=== PATIENT | female | born 1970 | race Caucasian/White ===

== ENCOUNTER 2019-11-26 15:39 | Outpatient (REF) | payer OTHER, SELFPAY ==
[2019-11-27 09:34] LABS: BV Int Neg Control Negative (Negative); BV Int Pos Control Positive (Positive)
== END 2019-11-26 15:40 | disposition home or self-care (01) ==
LOC: HO.LNP 15:39
PROVIDERS: PCP Internal Medicine; Referring Provider Internal Medicine; Visit Provider Obstetrics & Gynecology
DX: Z11.3 Encounter for screening for infections with a predominantly sexual mode of transmission (principal); N76.0 Acute vaginitis
CPT/HCPCS: 87480; 87510; 87660

== ENCOUNTER 2019-12-17 14:41 | Outpatient (REF) | payer OTHER, SELFPAY ==
[2019-12-25 18:17] LABS: HPV mRNA E6/E7 Not Detected (Not Detected)
== END 2019-12-17 14:42 | disposition home or self-care (01) ==
LOC: HO.LAB 14:41
PROVIDERS: Visit Provider Obstetrics & Gynecology
DX: Z01.419 Encounter for gynecological examination (general) (routine) without abnormal findings (principal)
CPT/HCPCS: 87624; 88142

== ENCOUNTER → 2020-01-31 11:02 | Outpatient (BNVA) | payer OTHER, SELFPAY | PROVIDERS: Visit Provider Nurse Practitioner Family | DX: Z76.89 Persons encountering health services in other specified circumstances (principal) ==

== ENCOUNTER 2020-03-16 13:40 | Outpatient (REF) | payer OTHER, SELFPAY ==
--- NOTE | 2020-03-16 13:43 | MM_ITS ---
EXAMINATION: MM SCREENING DIGITAL BREAST TOMOSYNTHESIS, BILATERAL CLINICAL INFORMATION: Screening. Asymptomatic. The lifetime risk of breast cancer based on the Tyrer-Cuzick Model is 9%. COMPARISON: Mammography: 12/01/2016, 08/21/2013 TECHNIQUE: Digital breast tomosynthesis is performed in both the craniocaudal and mediolateral oblique views along with computer-aided detection (CAD). Synthesized 2D images are generated from the tomosynthesis. FINDINGS: There are scattered areas of fibroglandular density (ACR BI-RADS breast composition Category b). There are no significant masses, abnormal calcifications, or other abnormalities. The axilla and skin contours are unremarkable. No significant changes. MM/MM tomosynthesis screening BI IMPRESSION: No mammographic evidence of malignancy. ASSESSMENT: BI-RADS 1: Negative RECOMMENDATION: Routine annual mammography screening. This patient's information was entered into a reminder system with a target due date for their next mammogram.
== END 2020-03-16 13:41 | disposition home or self-care (01) ==
LOC: HO.MAMMO 13:40
PROVIDERS: Visit Provider Obstetrics & Gynecology
DX: Z12.31 Encounter for screening mammogram for malignant neoplasm of breast (principal)
CPT/HCPCS: 77063; 77067

== ENCOUNTER 2020-06-11 06:24 | Day surgery (SDC) | payer OTHER, SELFPAY ==
[2020-06-01 15:32] LABS: Hematocrit 39.2 % (37-47); Hemoglobin 12.3 g/dl (12.0-16.0); Mean Corpuscular HGB Conc 31.4 g/dl (31.0-35.0); Mean Corpuscular Hemoglobin 26.6 pg (27.0-33.0); Mean Corpuscular Volume 84.8 fL (80-98); Mean Platelet Volume 10.5 fL (9.4-12.3); Platelet Count 262 X10*3/uL (160-400); Red Blood Count 4.62 X10*6/uL (4.20-5.50); Red Cell Distribution Width 14.3 % (11.0-16.0); White Blood Count 7.7 X10*3/uL (4.8-10.8)
[2020-06-01 15:51] LABS: Alanine Aminotransferase 20 U/L (0-31); Albumin Level 4.5 g/dL (3.5-5.0); Alkaline Phosphatase 43 U/L (39-117); Anion Gap 16 (12-20); Aspartate Amino Transferase 18 U/L (5-31); Bilirubin Total 0.6 mg/dL (0.0-1.0); Blood Urea Nitrogen 17 mg/dL (9-16); Carbon Dioxide 26 mmol/L (22-29); Chloride 101 mmol/L (96-108); Estimated Glomerular Filt Rate > 60; Glucose Random 86 mg/dL (60-115); Potassium 5.1 mmol/L (3.3-5.1); Sodium 138 mmol/L (135-145); Total Protein 7.1 g/dL (6.5-8.0)
[2020-06-11 06:33] VITALS: BMI 22.3
[2020-06-11 06:44] LABS: UPreg QC Valid YES; Urine Pregnancy NEGATIVE (NEGATIVE)
[2020-06-11 06:45] VITALS: BP 86/50; PULSE 62; RESP 20; TEMP 36.9; O2SAT 100; BMI 22.3
[2020-06-11] MEDS: Lactated Ringers 1,000 ML 20 ML IVCONT (07:08)
--- NOTE | 2020-06-11 07:08 | HO.ANESPROP2 ---
[facility] Past Medical History Medical History Hx of headache Family History Family History Mother Colon cancer Father Alive and well Surgical History Surgical History History of surgical removal of pilonidal cyst Hx of cervical polypectomy Social History Social History Alcohol intake: never Smoking Status: Never smoker Second Hand Smoke Exposure: No Use of substances other than those prescribed or required for medical reasons: No Advance Directives: No Advance Directives Information Provided: Yes Sexual orientation: Straight/Heterosexual Gender identity: female Meds Allergies Allergy/AdvReac Type Severity Reaction Status Date / Time No Known Allergies Allergy Unverified 06/04/20 11:14 [No Known Allergies*] Active Medications: Current Medications Generic Name Dose Route Start Last Admin Trade Name Freq PRN Reason Stop Dose Admin Lactated Ringer's 1,000 mls @ 20 mls/hr 06/10/20 14:15 Lr IVCONT .Q24H [facility] Home Medications Medication Instructions Recorded Confirmed Last Taken Type valerian root 100 mg capsule 100 mg PO TID-QID PRN 12/17/19 06/04/20 Unknown History Exam Exam Date and Time: June 11, 2020 0708 Height,Weight and Vital Signs: Height 5 ft 4 in Weight 58.967 kg Last Vital Signs Temp 98.4 F 06/11/20 06:45 Pulse 62 06/11/20 06:45 Resp 20 06/11/20 06:45 BP 86/50 L 06/11/20 06:45 Pulse Ox 100 06/11/20 06:45 Pertinent Lab Results Pertinent Lab Results: Laboratory Tests 06/01/20 06/01/20 06/11/20 15:07 15:07 06:35 WBC 7.7 RBC 4.62 Hgb 12.3 Hct 39.2 MCV 84.8 MCH 26.6 L MCHC 31.4 RDW 14.3 Plt Count 262 MPV 10.5 Absolute Nucleated RBC 0.000 Nucleated RBC % (auto) 0.0 Sodium 138 Potassium 5.1 Chloride 101 Carbon Dioxide 26 Anion Gap 16 BUN 17 H Creatinine 0.84 Estim Creat Clear Calc TNP Estimated GFR > 60 Random Glucose 86 Calcium 10.0 Total Bilirubin 0.6 AST 18 ALT 20 Alkaline Phosphatase 43 Total Protein 7.1 Albumin 4.5 Urine Test NEGATIVE Airway Mallampati Class: II TM Dist: >3cm Neck ROM: Full
--- NOTE | 2020-06-11 07:12 | MHC.SHP ---
Pre-Procedural Eval Section B Chief Complaint: screening Details of Present Illness: 49 yo female w/ + Family hx in her mother for colon cancer Relevant Family History (Specify if Yes): Yes Relevant Social History: None Present Medications: None Medical History: No relevant PMH History of Previous Operations: No relevant previous surgery Allergies: Allergies Allergy/AdvReac Type Severity Reaction Status Date / Time No Known Allergies Allergy Unverified 06/04/20 11:14 [No Known Allergies*] Plan Diagnosis/Plan: Unchanged I have reviewed the history and physical and performed a pertinent physical examination on my patient. No changes have occurred unless specified.
[2020-06-11 08:15] VITALS: BP 83/40; PULSE 70; RESP 16; TEMP 37.1; O2SAT 99
--- NOTE | 2020-06-11 08:17 | PM.OP ---
Brief Operative Note Date of Service: 06/11/20 Pre-op diagnosis: COLON CANCER SCREENING--MOTHER COLON CANCER AGE 79 Post-op diagnosis: other (DIVERTICULOSIS, 1+ INTERNAL HEMORRHOIDS) Procedure: COLONOSCOPY Implants: NONE Surgeon: Sue Kang MD Anesthesia: MAC (Jennifer STUBBS CRNA) Estimated blood loss (mL): 0 Pathology: none sent Condition: stable Disposition: PACU
[2020-06-11 08:30] VITALS: BP 86/45; PULSE 55; RESP 17; TEMP 37.1; O2SAT 99
--- NOTE | 2020-06-11 08:33 | W.PM.OPN ---
Operative Note Operative Note Date of Service: 06/11/20 Narrative: Pre-op diagnosis: COLON CANCER SCREENING--MOTHER COLON CANCER AGE 79 Post-op diagnosis: DIVERTICULOSIS, 1+ INTERNAL HEMORRHOIDS Procedure: COLONOSCOPY Implants: NONE Surgeon: Sue Kang MD Anesthesia: MAC: Jennifer STUBBS CRNA FINDINGS: ALEENA: Normal sphincter tone Adult slim colonoscope inserted without difficulty. Scope advanced through sigmoid, descending, transverse and ascending colon into the cecum. Appendiceal orifice seen. Ileocecal valve was seen. PREP: Good to excellent. No mucosal lesions seen. Minor Diveticulosis on the left side. Slow withdrawal of scope, no new lesions seen. ARV-clear. 1+Internal hemorroids were noted. Estimated blood loss (mL): 0 Pathology: none sent Condition: stable Disposition: PACU PLAN: REPEAT COLON CANCER SCREENING IN 5 YEARS DUE TO MOTHER'S HX OF COLON CANCER.
== END 2020-06-11 08:55 | disposition home or self-care (01) ==
PROVIDERS: Anesthesiology; Nurse Practitioner Family; Visit Provider Internal Medicine Gastroenterology
PROC: 0DJD8ZZ Inspection of Lower Intestinal Tract, Via Natural or Artificial Opening Endoscopic (ICD-10-PCS; CPT 45378; principal; 2020-06-11 07:30)
DX: Z12.11 Encounter for screening for malignant neoplasm of colon (principal); Z80.0 Family history of malignant neoplasm of digestive organs; K57.30 Diverticulosis of large intestine without perforation or abscess without bleeding; K64.8 Other hemorrhoids
CPT/HCPCS: 45378; 36415; 80053; 81025; 85027

== ENCOUNTER → 2020-06-25 13:49 | Outpatient (BNVA) | payer OTHER, SELFPAY | PROVIDERS: PCP Internal Medicine; Visit Provider Nurse Practitioner Family ==

== ENCOUNTER 2020-12-21 14:41 | Outpatient (REF) | payer OTHER, SELFPAY ==
[2020-12-23 20:37] LABS: HPV mRNA E6/E7 rflx Not Detected (Not Detected)
== END 2020-12-21 14:42 | disposition home or self-care (01) ==
LOC: HO.LAB 14:41
PROVIDERS: Visit Provider Advanced Practice Midwife
DX: Z01.419 Encounter for gynecological examination (general) (routine) without abnormal findings (principal); Z11.51 Encounter for screening for human papillomavirus (HPV); Z87.42 Personal history of other diseases of the female genital tract
CPT/HCPCS: 87624; 88142

== ENCOUNTER 2022-09-22 10:23 | Outpatient (AMB) | payer OTHER, SELFPAY ==
--- NOTE | 2022-09-22 10:41 | A.OFFVIS_ITS ---
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 She is sexually active with her of 20 +years and has no concerns at all about STIs or abnormal discharge. 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 She is due for mammogram and would like me to place another order. She has seen her primary care provider somewhat recently and is going to be getting what ever blood work is required when she can. She eats really healthy fruits vegetables and protein and shops the outside of the supermarket and avoids unhealthy foods she teaches [employer] as well. [facility] Medical History Hx of headache Surgical History History of surgical removal of pilonidal cyst Hx of cervical polypectomy Family History Mother Colon cancer Father Alive and well Social History Alcohol intake: current Alcohol intake frequency: a few times a week Alcohol type: wine Second Hand Smoke Exposure: No Sexual orientation: Straight/Heterosexual Gender identity: Female Female Reproductive History Menstrual Age of Menarche: 11 Date of last menstrual period: 06/21/21 control method: none Total pregnancies: 2 Full term: 2 Date of last pap smear: 12/22/20 History of abnormal pap smear: Yes History of STI: No Date of Mammogram: 03/16/20 History of abnormal mammogram: No Physical Exam Vital Signs: Last Vital Signs BP 118/64 09/22/22 10:42 BMI result Body Mass Index 24.2 Const General: healthy appearing, comfortable, no acute distress, well developed and alert Nutritional Appearance: average body habitus Orientation/consciousness: patient oriented x3 Limitations: no limitations HEENT Head: Yes normocephalic Neck Neck: Yes normal visual inspection Chest Chest palpation & inspection: normal inspection of the chest Breast/axilla inspection: normal inspection of the breasts and normal inspection of the axillae Breast/axilla palpation: normal palpation of the breasts and normal palpation of the axillae Resp Effort & Inspection: normal respiratory effort GI Inspection: Yes normal to inspection, No Abdominal wall edema and No distended Palpation (GI): Soft to palpation and nontender General: Yes bladder normal to palpation External Female Exam: normal external appearance and normal appearance of the urethra Speculum Exam - Vagina: normal appearance of the vagina, normal palpation and normal vaginal discharge Speculum Exam - Cervix: normal appearance of the cervix, normal palpation and nontender Bimanual exam- vagina & uterus: normal bimanual exam, normal palpation, uterine size normal, bladder normal to palpation, consistency normal, normal palpation, uterine mobility normal, uterine shape normal, No Cervical tenderness present, non-tender and no cervical motion tenderness Bimanual Exam- Adnexa, other: normal adnexae, no masses, normal and No adnexal tenderness Neuro General: patient oriented x3 Results Reviewed Results Reviewed: Name:?Laisha Simon Age/Sex: 49/F Attending: Sue Avila CNM : 1970 Submitted by: MargaritaSue AVSuzette Copies to: MR #: [id number] ? Status: DEP REF Collected: 12/21/20 Location: .LAB Received: 12/22/20 Interpretation General Category:?? Negative for intraepithelial lesion/malignancy. Adequacy:? Endocervical component present. Interpretation:? ?? Inflammation and blood with associated cellular changes. HPV mRNA E6/E7:? Not Detected This assay detects E6/E7 viral messenger RNA (mRNA) from 14 high-risk HPV types (16, 18, 31, 33, 35, 39, 45, 51, 52, 56, 58, 59, 66, 68) HPV testing performed by [facility], [place], [place].? See reference laboratory portion of the EMR for entire report. Clinical Information LMP: 12/18/20 Previous PAP test: 2019, Neg Other history: 2013, Abnormal Material Received ThinPrep-Cervical Name:?Laisha Simon Specimen #:?[id number] Age/Sex: 48/F Attending: Christa Loyd MD : 1970 Submitted by: Christa Loyd MD Collected: 12/17/19 MR #: [id number] Received: 12/18/19 Status: [facility] RE[facility] Interpretation Satisfactory for evaluation. Negative for intraepithelial lesion or malignancy. HPV mRNA E6/E7: Not Detected This assay detects E6/E7 viral messenger RNA (mRNA) from 14 high-risk HPV types (16, 18, 31, 33, 35, 39, 45, 51, 52, 56, 58, 59, 66, 68) HPV testing performed by [facility], [place], [place].? See reference laboratory portion of the EMR for entire report. Clinical Information LMP: Unknown date Previous PAP test: 11/2018, wnl Other history: Abnormal appearance of the cervix on exam Material Received ThinPrep cervical Pap with ASCUS in 2017. Assessment & Plan Assessment & Plan (1) Hx of abnormal cervical Pap smear: Comment: ascus 2017 pap 12/21/20= neg, neg hpv Code(s): Z87.42 - Personal history of other diseases of the female genital tract (2) Well woman exam with routine gynecological exam: Code(s): Z01.419 - Encounter for gynecological examination (general) (routine) without abnormal findings (3) Breast cancer screening: Code(s): Z12.39 - Encounter for other screening for malignant neoplasm of breast Plan -----Discussed in this visit the following: healthy balanced diet, regular and consistent exercise, getting recommended health screens, doing the best she can for her particular health concerns, kegel exercises, pap smear screening and followup recommendations, mammography screening and SBE, normal changes in cycles in her life stage--- . Reviewed her excellent self-care mammogram will be ordered we will see her next year Pap was done because of her history of ASCUS in 2017.. Orders: Orders Pap Smear Today Z01.419 - Encounter for gynecological examination (general) (routine) without abnormal findings MM tomosynthesis screening BI Today Z01.419 - Encounter for gynecological examination (general) (routine) without abnormal findings, Z12.31 - Encounter for screening mammogram for malignant neoplasm of breast, Z12.39 - Encounter for other screening for malignant neoplasm of breast, Z87.42 - Personal history of other diseases of the female genital tract Coding Level of Care Code Est Pt Prev Care 40-64y(86090) Diagnoses Hx of abnormal cervical Pap smear Z87.42 Well woman exam with routine gynecological exam Z01.419 Breast cancer screening Z12.39
[2022-09-22 10:42] VITALS: BP 118/64; BMI 24.2
== END 2022-09-22 12:53 | disposition home or self-care (01) ==
LOC: HO.HWS 10:23
PROVIDERS: Visit Provider Advanced Practice Midwife
DX: Z01.419 Encounter for gynecological examination (general) (routine) without abnormal findings (principal); Z87.42 Personal history of other diseases of the female genital tract; Z12.39 Encounter for other screening for malignant neoplasm of breast
CPT/HCPCS: 99396

== ENCOUNTER 2022-09-22 10:23 | Outpatient (REF) | payer OTHER, SELFPAY ==
[2022-09-30 02:14] LABS: HPV mRNA E6/E7 rflx Not Detected (Not Detected)
== END 2022-09-22 10:24 | disposition home or self-care (01) ==
LOC: HO.LNP 10:23
PROVIDERS: Visit Provider Advanced Practice Midwife
DX: Z01.419 Encounter for gynecological examination (general) (routine) without abnormal findings (principal); Z11.51 Encounter for screening for human papillomavirus (HPV)
CPT/HCPCS: 87624; 88142

== ENCOUNTER 2022-10-18 14:02 | Outpatient (REF) | payer OTHER, SELFPAY ==
--- NOTE | ~2022-10-18 | MM_ITS ---
EXAMINATION: MM SCREENING DIGITAL BREAST TOMOSYNTHESIS, BILATERAL CLINICAL INFORMATION: Screening. Asymptomatic. COMPARISON: Mammography: This study is compared with prior exams dating back to 2013. TECHNIQUE: Digital breast tomosynthesis is performed in both the craniocaudal and mediolateral oblique views along with computer-aided detection (CAD). Synthesized 2D images are generated from the tomosynthesis. FINDINGS: There are scattered areas of fibroglandular density (ACR BI-RADS breast composition Category b). There are no significant masses, abnormal calcifications, or other abnormalities. MM/MM tomosynthesis screening BI IMPRESSION: No mammographic evidence of malignancy. ASSESSMENT: BI-RADS BI-RADS 1 - Negative RECOMMENDATION: Routine annual mammography screening. 1 year F/U This examination should not preclude the clinical evaluation of a suspicious palpable abnormality. This patient's information was entered into a reminder system with a target due date for their next mammogram.
== END 2022-10-18 14:03 | disposition home or self-care (01) ==
LOC: HO.MAMMO 14:02
PROVIDERS: PCP Internal Medicine; Visit Provider Advanced Practice Midwife
DX: Z12.31 Encounter for screening mammogram for malignant neoplasm of breast (principal)
CPT/HCPCS: 77063; 77067

== ENCOUNTER → 2022-10-18 14:45 | Outpatient (BNV) | payer OTHER, SELFPAY | PROVIDERS: PCP Internal Medicine; Visit Provider Radiology Diagnostic Radiology | DX: Z12.31 Encounter for screening mammogram for malignant neoplasm of breast (principal) | CPT/HCPCS: 77063; 77067 ==

== ENCOUNTER 2024-10-01 08:18 | Outpatient (REF) | payer OTHER, SELFPAY ==
--- OUTSIDE RECORDS SUMMARY | 2024-10-02 08:22 | XMS_ITS | Patient Health Record ---
Author Organization [facility] Address [address] [place] [address] Care Team Providers Care Manager Leadership Development Name Role Phone Chiqui Troncoso MD Primary Care Provider Unavail able Black, Britany Unavailable [phone] Reason For Referral No Information Medications Medication SIG (Take, Route, Frequency, Duration) Notes Start Date End Date Status Feldene 20 MG 1 capsule with food Orally Once a day; Duration: 30 day(s) 02/06/2018 Active Social History Tobacco Use: Social History Observation Description Date Details (start date - stop date) Never Smoker NA - NA Tobacco Use/Smoking Question Answer Notes Are you a: nonsmoker Additional Findings: Tobacco Non-User Aggressive non-smoker,Current non-smoker Alcohol Screen Question Answer Notes Did you have a drink contain ing alcohol in the past year? Yes How often did you have a dri nk containing alcohol in the past year? 2 to 3 times a week (3 points) How many drinks did you have on a typical day when you were drinking in the past year? 1 or 2 drinks (0 point) How often did you have 6 or more drinks on one occasion in the past year? Never (0 point) Points 3 Interpretation Positive Tobacco use other than smoking: Question Answer Notes Are you an other tobacco user? No Problems No Known Problems Plan Of Treatment No Information Insurance Providers Payer Name Payer Address Payer Phone Subscriber Number Group Number Insured Name Patient Relationship to Insured Coverage Start Date Coverage End Date [facility] [address] [place] [address] [id number] Marques Simon Spouse - patient is the spouse of the insured Medical (General) History Medical History History ICD Code Chicken pox Surgical History Surgery Date(Month/Year) Uterine Polyps 01/2017
== END 2024-10-01 08:19 | disposition home or self-care (01) ==
LOC: HO.HOSX 08:18
PROVIDERS: Visit Provider Orthopaedic Surgery
DX: Z13.89 Encounter for screening for other disorder (principal)